=== PATIENT | female | born 1995 | race Two or more races ===

== ENCOUNTER 2017-12-29 17:28 | Emergency (ER) | payer OTHER ==
[~2017-12-29] VITALS: Ht 172.7 cm; Wt 88.0 kg
== END 2017-12-29 23:09 | disposition home or self-care (01) ==
LOC: ER 17:28
DX: S60.572A Other superficial bite of hand of left hand, initial encounter (principal); W55.01XA Bitten by cat, initial encounter; Y93.89 Activity, other specified; Y92.89 Other specified places as the place of occurrence of the external cause; Y99.8 Other external cause status